=== PATIENT | female | born 1950 | race Caucasian/White ===

== ENCOUNTER 2021-06-15 10:56 | Inpatient (IN) | payer MEDICARE, OTHER ==
[~2021-06-15] VITALS: Ht 167.6 cm; Wt 80.7 kg
[2021-06-15 11:50] LABS: HEMOGLOBIN 12.2 gm/dl (12.3-15.3); RED BLOOD COUNT 4.02 M/UL (4.00-5.10); WHITE BLOOD COUNT 10.6 K/UL (4.5-11.0)
[2021-06-15] MEDS ORDERED: ISOSORBIDE DINI20 MG PO (16:53)
[2021-06-15] MEDS ORDERED: TRAZODONE HCL100 MG PO (16:54)
[2021-06-15] MEDS ORDERED: OXYBUTYNIN CHLO10 MG PO (16:54)
[2021-06-15] MEDS ORDERED: RANOLAZINE ER500 MG PO (16:55)
[2021-06-15] MEDS ORDERED: LISINOPRIL2.5 MG PO (16:56)
[2021-06-15] MEDS ORDERED: FLUOXETINE HCL40 MG PO (16:56)
[2021-06-15] MEDS ORDERED: METOPROLOL TART25 MG PO (16:56)
[2021-06-15] MEDS ORDERED: GABAPENTIN100 MG PO (16:57)
[2021-06-15] MEDS ORDERED: ATORVASTATIN CA80 MG PO (16:57)
[2021-06-15] MEDS ORDERED: PRESERVISION A1 EAC2 PO (16:58)
[2021-06-15] MEDS ORDERED: ASPIRIN EC81 MG PO (16:58)
[2021-06-15] MEDS ORDERED: EXCEDRIN MIGRA1 EACH PO (16:59)
[2021-06-15] MEDS ORDERED: DAILY VALUE1 EACH PO (16:59)
[2021-06-15] MEDS ORDERED: LINZESS72 MCG PO (17:00)
[2021-06-15] MEDS ORDERED: TYLENOL 8 HOUR650 MG PO (17:00)
[2021-06-16 03:29] LABS: HEMOGLOBIN 11.1 gm/dl (12.3-15.3); RED BLOOD COUNT 3.68 M/UL (4.00-5.10); WHITE BLOOD COUNT 8.5 K/UL (4.5-11.0)
[2021-06-16 04:14] LABS: BUN/CREATININE RATIO 20 (0-10)
[2021-06-17 09:43] LABS: HEMOGLOBIN 10.3 gm/dl (12.3-15.3); RED BLOOD COUNT 3.39 M/UL (4.00-5.10)
[2021-06-17 09:44] LABS: WHITE BLOOD COUNT 13.4 K/UL (4.5-11.0)
[2021-06-18 05:00] LABS: ACINETOBACTER BAUMANNII Not Detected (Negative); CANDIDA ALBICANS Not Detected (Negative); CANDIDA KRUSEI Not Detected (Negative); CANDIDA TROPICALIS Not Detected (Negative); ENTEROCOCCUS Not Detected (Negative); HAEMOPHILUS INFLUENZAE Not Detected (Negative); KLEBSIELLA OXYTOCA Not Detected (Negative); KLEBSIELLA PNEUMONIAE Not Detected (Negative); KPC-CARBAPENEM-RESISTANCE GENE Not Detected (Negative); PROTEUS Not Detected (Negative); PSEUDOMONAS AERUGINOSA Not Detected (Negative); SERRATIA MARCESANS Not Detected (Negative); STAPHYLOCOCCUS Not Detected (Negative); STAPHYLOCOCCUS AUREUS Not Detected (Negative); STREP AGALACTIAE (GROUP B) Not Detected (Negative); STREP PYOGENES (GROUP A) Not Detected (Negative); STREPTOCOCCUS Not Detected (Negative); mecA (METHICILLIN RESIST GENE Not Detected (Negative); vanA/B (VANCOMYCIN RESIST GENE Not Detected (Negative)
[2021-06-18 05:03] LABS: ESCHERICHIA COLI DETECTED (Negative)
[2021-06-18 06:29] LABS: HEMOGLOBIN 10.3 gm/dl (12.3-15.3); RED BLOOD COUNT 3.39 M/UL (4.00-5.10); WHITE BLOOD COUNT 11.9 K/UL (4.5-11.0)
[2021-06-19 04:42] LABS: HEMOGLOBIN 10.1 gm/dl (12.3-15.3); RED BLOOD COUNT 3.35 M/UL (4.00-5.10); WHITE BLOOD COUNT 11.6 K/UL (4.5-11.0)
[2021-06-21] MEDS ORDERED: OMNICEF 300 MG300 MG PO (09:46)
[2021-06-21] MEDS ORDERED: DILTIAZEM 24HR180 M1 PO (09:54)
[2021-06-21] MEDS ORDERED: LOPRESSOR 25 MG25 MG PO (09:54)
== END 2021-06-21 13:23 | disposition home or self-care (01) | DRG 871 ==
LOC: ER1 10:56 → PROG CARE 14:55 → CDU 14:55 → PROG CARE 17:06
PROVIDERS: Emergency Medicine; Physician Assistant; ADMIT Internal Medicine
PROC: B24BZZZ Ultrasonography of Heart with Aorta (ICD-10-PCS; principal; 2021-06-16)
DX: A41.51 Sepsis due to Escherichia coli [E. coli] (principal); J18.8 Other pneumonia, unspecified organism; G93.41 Metabolic encephalopathy; E87.1 Hypo-osmolality and hyponatremia; I48.92 Unspecified atrial flutter; N17.9 Acute kidney failure, unspecified; J98.11 Atelectasis; N13.6 Pyonephrosis; E87.2 Acidosis; I12.9 Hypertensive chronic kidney disease with stage 1 through stage 4 chronic kidney disease, or unspecified chronic kidney disease; N18.30 Chronic kidney disease, stage 3 unspecified; I25.10 Atherosclerotic heart disease of native coronary artery without angina pectoris; E78.5 Hyperlipidemia, unspecified; I27.20 Pulmonary hypertension, unspecified; I08.1 Rheumatic disorders of both mitral and tricuspid valves; Z95.5 Presence of coronary angioplasty implant and graft; Z82.49 Family history of ischemic heart disease and other diseases of the circulatory system; Z79.01 Long term (current) use of anticoagulants; Z90.49 Acquired absence of other specified parts of digestive tract; Z90.710 Acquired absence of both cervix and uterus; Z98.890 Other specified postprocedural states
CPT/HCPCS: ECHO; 36415; 71045; 71250; 80053; 81001; 82550; 82553; 83605; 83690; 83735; 83874; 83880; 84100; 84132; 84439; 84443; 84484; 85025; 85379; 85610; 85730; 86140; 87040; 87077; 87086; 87150; 87186; 93005; 93306; 96374; 96375; 97162; 99285; J0692; J1160; J1644; J2930; J3370; J7030; J7070; J7120; Q9967; U0002

== ENCOUNTER → 2021-09-17 | Outpatient (CLI) | payer MEDICARE, OTHER ==
[~2021-09-17] MED LIST: ASPIRIN EC81 MG PO; ATORVASTATIN CA80 MG PO; DAILY VALUE1 EACH PO; DILTIAZEM 24HR180 M1 PO; EXCEDRIN MIGRA1 EACH PO; FLUOXETINE HCL40 MG PO; GABAPENTIN100 MG PO; ISOSORBIDE DINI20 MG PO; LINZESS72 MCG PO; LISINOPRIL2.5 MG PO; LOPRESSOR 25 MG25 MG PO; METOPROLOL TART25 MG PO; OMNICEF 300 MG300 MG PO; OXYBUTYNIN CHLO10 MG PO; PRESERVISION A1 EAC2 PO; RANOLAZINE ER500 MG PO; TRAZODONE HCL100 MG PO; TYLENOL 8 HOUR650 MG PO
== END ==
LOC: US 09-14 11:00
DX: I65.22 Occlusion and stenosis of left carotid artery (principal)
CPT/HCPCS: 93880

== ENCOUNTER 2021-11-30 09:10 | Emergency (ER) | payer MEDICARE, OTHER ==
[2021-11-30 09:25] LABS: HEMOGLOBIN 13.3 gm/dl (12.3-15.3); RED BLOOD COUNT 4.52 M/UL (4.00-5.10); WHITE BLOOD COUNT 15.1 K/UL (4.5-11.0)
[2021-11-30 09:47] LABS: BUN/CREATININE RATIO 16 (0-10)
== END 2021-11-30 12:45 ==
LOC: ER1 09:10
PROVIDERS: Emergency Medicine
DX: R29.810 Facial weakness (principal); Z20.822 Contact with and (suspected) exposure to COVID-19; Z86.73 Personal history of transient ischemic attack (TIA), and cerebral infarction without residual deficits
CPT/HCPCS: 31500; 36600; 70450; 70496; 70498; 71045; 80053; 82550; 82553; 82803; 84484; 85025; 85610; 85730; 93005; 94002; 94760; 96374; 96375; 99285; J0153; J2704; Q9967; U0002

== ENCOUNTER 2022-03-24 06:58 | Inpatient (IN) | payer MEDICARE, OTHER ==
[~2022-03-24] VITALS: Ht 167.6 cm; Wt 59.6 kg
[~2022-03-24 06:58] MED LIST changes: +ATORVASTATIN CA40 MG PO; -ATORVASTATIN CA80 MG PO; -FLUOXETINE HCL40 MG PO; +PROZAC20 MG PO
[2022-03-24 07:47] LABS: HEMOGLOBIN 14.8 gm/dl (12.3-15.3); RED BLOOD COUNT 5.09 M/UL (4.00-5.10); WHITE BLOOD COUNT 8.3 K/UL (4.5-11.0)
[2022-03-24 08:37] LABS: BUN/CREATININE RATIO 15 (0-10)
[2022-03-24] MEDS ORDERED: TYLENOL325 MG PO (12:28)
[2022-03-24] MEDS ORDERED: OMEPRAZOLE MAGN20 MG PO (12:29)
[2022-03-24] MEDS ORDERED: STOOL SOFTENER100 MG PO (12:29)
[2022-03-24] MEDS ORDERED: DULOXETINE HCL30 MG PO (12:40)
[2022-03-24] MEDS ORDERED: ROXICODONE5 MG PO (12:41)
[2022-03-24] MEDS ORDERED: METOPROLOL TART50 MG PO (12:42)
[2022-03-25 02:20] LABS: WHITE BLOOD COUNT 6.9 K/UL (4.5-11.0)
[2022-03-25 02:26] LABS: RED BLOOD COUNT 4.47 M/UL (4.00-5.10)
[2022-03-25 02:38] LABS: BUN/CREATININE RATIO 13 (0-10)
[2022-03-26 02:26] LABS: HEMOGLOBIN 12.8 gm/dl (12.3-15.3); RED BLOOD COUNT 4.4 M/UL (4.00-5.10); WHITE BLOOD COUNT 7.1 K/UL (4.5-11.0)
[2022-03-26 02:54] LABS: BUN/CREATININE RATIO 10 (0-10)
[2022-03-27 02:40] LABS: HEMOGLOBIN 12.2 gm/dl (12.3-15.3); RED BLOOD COUNT 4.25 M/UL (4.00-5.10); WHITE BLOOD COUNT 8.4 K/UL (4.5-11.0)
[2022-03-27 03:11] LABS: BUN/CREATININE RATIO 7 (0-10)
[2022-03-28 02:04] LABS: HEMOGLOBIN 12.7 gm/dl (12.3-15.3); RED BLOOD COUNT 4.47 M/UL (4.00-5.10); WHITE BLOOD COUNT 7.9 K/UL (4.5-11.0)
[2022-03-28 02:23] LABS: BUN/CREATININE RATIO 8 (0-10)
[2022-03-28] MEDS ORDERED: KEPPRA 250 MG250 MG PO (11:54)
[2022-03-28] MEDS ORDERED: LOPRESSOR 25 MG25 MG PO (11:57)
[2022-03-28] MEDS ORDERED: DIGOXIN125 MCG PO (11:57)
[2022-03-28] MEDS ORDERED: AMOX TR-K CLV1 EAC4 PO (12:00)
== END 2022-03-28 15:45 | disposition home or self-care (01) | DRG 100 ==
LOC: ER1 06:58 → CDU 10:01 → PROG CARE 10:01
PROVIDERS: Emergency Medicine; Internal Medicine; Physician Assistant; ADMIT Internal Medicine
PROC: 4A00X4Z Measurement of Central Nervous Electrical Activity, External Approach (ICD-10-PCS; principal; 2022-03-28)
DX: G40.909 Epilepsy, unspecified, not intractable, without status epilepticus (principal); G93.41 Metabolic encephalopathy; Z20.822 Contact with and (suspected) exposure to COVID-19; Z66 Do not resuscitate; N30.00 Acute cystitis without hematuria; I47.1 Supraventricular tachycardia; R47.01 Aphasia; R29.713 NIHSS score 13; I48.91 Unspecified atrial fibrillation; E87.6 Hypokalemia; E83.42 Hypomagnesemia; F17.290 Nicotine dependence, other tobacco product, uncomplicated; I25.10 Atherosclerotic heart disease of native coronary artery without angina pectoris; I12.9 Hypertensive chronic kidney disease with stage 1 through stage 4 chronic kidney disease, or unspecified chronic kidney disease; F32.A Depression, unspecified; R47.9 Unspecified speech disturbances; E78.5 Hyperlipidemia, unspecified; N18.9 Chronic kidney disease, unspecified; Z79.01 Long term (current) use of anticoagulants; Z79.82 Long term (current) use of aspirin; Z86.73 Personal history of transient ischemic attack (TIA), and cerebral infarction without residual deficits; Z95.5 Presence of coronary angioplasty implant and graft; Z90.49 Acquired absence of other specified parts of digestive tract; Z82.49 Family history of ischemic heart disease and other diseases of the circulatory system; Z90.710 Acquired absence of both cervix and uterus; Z98.51 Tubal ligation status
CPT/HCPCS: 0240U; 36415; 51702; 70450; 70496; 70498; 70551; 71045; 80048; 80053; 80162; 81001; 82550; 82553; 83605; 83735; 83880; 84132; 84484; 85025; 85027; 85610; 85730; 87040; 87086; 92507; 92526; 92610; 93005; 95819; 96365; 96374; 96375; 96376; 97110; 97110-GP-CQ; 97162; 97167; 97530; 99285; G0378; J0153; J0696; J1650; J1953; J3475; Q9967

== ENCOUNTER 2022-04-26 13:42 | Emergency (ER) | payer MEDICARE, OTHER ==
[~2022-04-26 13:42] MED LIST changes: +AMOX TR-K CLV1 EAC4 PO; +DIGOXIN125 MCG PO; +DULOXETINE HCL30 MG PO; +KEPPRA 250 MG250 MG PO; +METOPROLOL TART50 MG PO; +OMEPRAZOLE MAGN20 MG PO; +ROXICODONE5 MG PO; +STOOL SOFTENER100 MG PO; +TYLENOL325 MG PO
[2022-04-26 14:43] LABS: HEMOGLOBIN 13.3 gm/dl (12.3-15.3); RED BLOOD COUNT 4.63 M/UL (4.00-5.10); WHITE BLOOD COUNT 7.7 K/UL (4.5-11.0)
[2022-04-26 15:26] LABS: BUN/CREATININE RATIO 21 (0-10)
[2022-04-26] MEDS ORDERED: OMNICEF 300 MG300 MG PO (17:32)
== END 2022-04-26 18:00 | disposition home or self-care (01) ==
LOC: ER1 13:42
PROVIDERS: Physician Assistant
DX: N39.0 Urinary tract infection, site not specified (principal); K59.00 Constipation, unspecified; I48.91 Unspecified atrial fibrillation; E11.9 Type 2 diabetes mellitus without complications; J44.9 Chronic obstructive pulmonary disease, unspecified; I10 Essential (primary) hypertension; I25.10 Atherosclerotic heart disease of native coronary artery without angina pectoris; G40.909 Epilepsy, unspecified, not intractable, without status epilepticus; E78.5 Hyperlipidemia, unspecified; Z90.710 Acquired absence of both cervix and uterus; Z90.49 Acquired absence of other specified parts of digestive tract
CPT/HCPCS: 80053; 81001; 85025; 87077; 87086; 87186; 96374; 99284; J0696; J1885